=== PATIENT | female | born 1950 ===

== ENCOUNTER → 2024-01-14 | Outpatient (CLI) | payer MEDICAID | END | disposition home or self-care (01) | LOC: RAD 15:29 | PROVIDERS: ATTEND Student in an Organized Health Care Education/Training Program | DX: S72.8X2D Other fracture of left femur, subsequent encounter for closed fracture with routine healing (principal); X58.XXXD Exposure to other specified factors, subsequent encounter; Z98.890 Other specified postprocedural states | CPT/HCPCS: 73502; 73552 ==